=== PATIENT | female | born 1975 | race African-American/Black ===

== ENCOUNTER 2023-11-05 19:11 | Emergency (ER) | payer BC, SELFPAY ==
[2023-11-05 20:16] LABS: Actual Bicarbonate (HCO3v) 24.4 mEq/L (22-28); Base Excess -0.1 mEq/L (-2.0 to +3.0); Calcium, Ionized (venous) 1.05 mmol/L (1.16-1.32); Chloride (VBG) 98 mmol/L (98-106); Hematocrit-VBG 41 % (36.0-47.0); Potassium (VBG) 4.39 mmol/L (3.70-5.30); Sodium 132 mmol/L (133-146)
[2023-11-05 20:20] LABS: #Basophils 0.1 thou/uL (0.0-0.2); #Eosinphils 0.2 thou/uL (0.0-0.7); #Monocytes 0.7 thou/uL (0.11-0.59); #Neutrophils 3.5 thou/uL (1.40-6.50); %Eosinophils 2.9 % (0.0-10.0); %Lymphocytes 36.6 % (21.0-51.0); %Monocytes 10.3 % (0.0-10.0); %Neutrophils 48.9 % (42.0-75.0); Hematocrit 41.5 % (36.0-47.0); Hemoglobin 13.5 g/dL (12.0-16.0); Mean Corpuscular HGB CONC 32.5 g/dL (32.0-36.0); Mean Corpuscular Hemoglobin 23.3 pg (27.0-31.0); Mean Corpuscular Volume 71.6 fl (78.0-98.0); Platelet Count 97 10x3/uL (130-400); RBC Distribution Width 19.3 % (11.5-14.5); White Blood Cell (WBC) Count 7.2 10x3/uL (4.8-10.8)
[2023-11-05 20:38] LABS: Phosphorus 3.3 mg/dL (2.3-4.7)
[2023-11-05 20:46] LABS: ALT (SGPT) 46 U/L (8-55); AST (SGOT) 48 U/L (5-34); Albumin 3.5 g/dL (3.5-5.0); Alkaline Phosphatase 107 U/L (40-110); Anion Gap 14 mmol/L (10-20); Anisocytosis SLIGHT = 6-15 cells HPF (0-5); BUN (Urea Nitrogen) 10 mg/dL (7.0-18.7); Bilirubin, Total 2.1 mg/dL (0.2-1.2); Calc. Creatinine Clearance 0 mL/min (70-130); Calcium 9.2 mg/dL (7.8-10.44); Carbon Dioxide 22 mmol/L (22-29); CellaVision Operator ID lab.abc; Chloride 99 mmol/L (98-107); Estimated GFR 61; Globulin 4.7 g/dL (2.4-3.5); Large Platelets 14.7 % (0-5); Lipase 40 U/L (8-78); Magnesium 1.3 mg/dL (1.6-2.6); Microcytosis SLIGHT = 6-15 cells HPF (0-5); Platelet Adequacy Comment Platelets Decreased; Polychromasia SLIGHT = 2-3 cells HPF (0-2); Potassium 4.3 mmol/L (3.5-5.1); Protein, Total 8.2 g/dL (6.0-8.3); Smudge Cells 17.6 %; Sodium 131 mmol/L (136-145); Target Cells SLIGHT = 2-5 cells HPF (0-1)
[2023-11-05 20:48] LABS: Troponin I 0.013 ng/mL (< 0.028)
[2023-11-05 20:52] LABS: Glucose 456 mg/dL (70-105)
[2023-11-05 21:29] LABS: Bacteria/HPF 4+ HPF (None Seen); Bilirubin Negative (Negative); Blood, Urine 3+ (Negative); CAUTI Indications for Culture Dysuria,urgency,freq; Clarity Turbid (Clear); Glucose, Urine (Dipstick) Greater than 1000 mg/dL (Negative); Ketone, Urine Negative (Negative); Leukocyte 75 Leu/uL (Negative); Nitrite Negative (Negative); Protein, Urine (Dipstick) 10 mg/dL (Neg-Trace); Specific Gravity, Urine 1.016 (1.002-1.036); Urobilinogen 6 mg/dL (Less than 2); pH, Urine 5.5 (5.0-9.0)
[2023-11-05 21:30] LABS: Urine Culture Reflex No No
[2023-11-05] MEDS ORDERED: Losartan 25 MG TAB ONE (22:30)
== END 2023-11-05 22:40 | disposition left against medical advice (07) ==
LOC: ERS 19:11
DX: E11.65 Type 2 diabetes mellitus with hyperglycemia (principal); D69.6 Thrombocytopenia, unspecified; I11.0 Hypertensive heart disease with heart failure; I50.9 Heart failure, unspecified
CPT/HCPCS: 36415; 80053; 81001; 82010; 82805; 83690; 83735; 84100; 84484; 85025; 93005; 96360

== ENCOUNTER 2024-08-28 19:31 | Inpatient (IN) | payer BC, SELFPAY ==
[2024-08-28 20:11] LABS: Actual Bicarbonate (HCO3v) 24.3 mEq/L (22-28); Analyzer IN Cardio ER; Base Excess -0.8 mEq/L (-2.0 to +3.0); Calcium, Ionized (venous) 1.13 mmol/L (1.16-1.32); Chloride (VBG) 98 mmol/L (98-106); Hematocrit-VBG 41 % (36.0-47.0); Hemoglobin (Hb) 13.8 g/dL (11.7-16.0); Potassium (VBG) 3.71 mmol/L (3.70-5.30); Sodium 140 mmol/L (133-146); pH (venous) 7.381 (7.32-7.43)
[2024-08-28 20:32] LABS: #Basophils 0.09 10x3/uL (0.0-0.2); %Eosinophils 3.2 % (0.0-10.0); %Lymphocytes 28.5 % (21.0-51.0); %Monocytes 9.7 % (0.0-10.0); %Neutrophils 56.8 % (42.0-75.0); Hematocrit 40.9 % (36.0-47.0); Hemoglobin 13.1 g/dL (12.0-16.0); Mean Corpuscular Hemoglobin 21.4 pg (27.0-31.0); Mean Corpuscular Volume 66.9 fL (78.0-98.0); Platelet Count 159 10x3/uL (130-400); Red Blood Cell (RBC) Count 6.11 mill/uL (4.20-5.40)
[2024-08-28 20:47] LABS: ALT (SGPT) 55 U/L (8-55); AST (SGOT) 68 U/L (5-34); Albumin 4.1 g/dL (3.5-5.0); Alkaline Phosphatase 103 U/L (40-110); Anion Gap 16 mmol/L (10-20); BUN (Urea Nitrogen) 16 mg/dL (7.0-18.7); Calc. Creatinine Clearance 0 mL/min (70-130); Calcium 9.8 mg/dL (7.8-10.44); Carbon Dioxide 20 mmol/L (22-29); Chloride 103 mmol/L (98-107); Estimated GFR 36; Globulin 4.6 g/dL (2.4-3.5); Glucose 62 mg/dL (70-105); Magnesium 2.2 mg/dL (1.6-2.6); Potassium 3.5 mmol/L (3.5-5.1); Protein, Total 8.7 g/dL (6.0-8.3); Sodium 135 mmol/L (136-145)
[2024-08-28 20:51] LABS: Troponin I Less than 0.010 ng/mL (< 0.028)
[2024-08-28] MEDS ORDERED: Magnesium 2 GM/50 ML BAG (IN WATER) ONE (21:08)
[2024-08-28 22:00] LABS: Free T4 (Free Thyroxine) 1.26 ng/dL (0.70-1.48)
[2024-08-28 23:48] LABS: Bacteria/HPF 4+ HPF (None Seen); Bilirubin Negative (Negative); Blood, Urine 2+ (Negative); CAUTI Indications for Culture Dysuria,urgency,freq; Clarity Turbid (Clear); Glucose, Urine (Dipstick) Normal (Negative); Ketone, Urine Negative (Negative); Leukocyte 75 Leu/uL (Negative); Nitrite Negative (Negative); Protein, Urine (Dipstick) 30 mg/dL (Neg-Trace); RBC/HPF 0-3 HPF (0-3); Specific Gravity, Urine 1.012 (1.002-1.036); Urobilinogen 3 mg/dL (Less than 2); pH, Urine 5.5 (5.0-9.0)
[2024-08-28 23:49] LABS: Urine Culture Reflex Yes Yes
[2024-08-29] MEDS ORDERED: Ondansetron PF 4 MG/2 ML Vial IVP PRN (00:20)
[2024-08-29] MEDS ORDERED: Ondansetron ODT 4 MG TAB PO PRN (00:20)
[2024-08-29] MEDS ORDERED: Sodium Chloride 0.9% 1,000 ML IV SCH (00:45)
[2024-08-29] MEDS ORDERED: Dextrose 50% Abboject 50 ML SYRINGE SLOW IVP PRN (01:20)
[2024-08-29] MEDS ORDERED: Glucagon 1 MG/ML KIT IM PRN (01:20)
[2024-08-29] MEDS ORDERED: Dextrose 5% in Water 1,000 ML IV PRN (01:20)
[2024-08-29 01:21] LABS: Troponin I Less than 0.010 ng/mL (< 0.028)
[2024-08-29] MEDS ORDERED: Sodium Chloride 0.9% 100 ML ONE (01:27)
[2024-08-29] MEDS ORDERED: cefTRIAXone (ROCEPHIN) 2 GM VIAL ONE (01:27)
[2024-08-29 03:17] VITALS: BMI 39.4
[2024-08-29] MEDS: metroNIDAZOLE 500 MG in Premix 1 BAG IVPB SCH (03:34)
[2024-08-29] MEDS: cefTRIAXone\\ROCEPHIN 2 GM in Sodium Chloride 0.9% 100 ML IVPB SCH (03:35)
[2024-08-29 04:55] LABS: #Basophils 0.07 10x3/uL (0.0-0.2); %Basophils 0.7 % (0.0-1.0); %Eosinophils 2.5 % (0.0-10.0); %Lymphocytes 29.2 % (21.0-51.0); %Monocytes 9.4 % (0.0-10.0); %Neutrophils 57.9 % (42.0-75.0); Hematocrit 41.1 % (36.0-47.0); Hemoglobin 12.9 g/dL (12.0-16.0); Mean Corpuscular HGB CONC 31.4 g/dL (32.0-36.0); Mean Corpuscular Hemoglobin 21.7 pg (27.0-31.0); Mean Corpuscular Volume 69.1 fL (78.0-98.0); Platelet Count 139 10x3/uL (130-400); RBC Distribution Width 19.1 % (11.5-14.5); Red Blood Cell (RBC) Count 5.95 mill/uL (4.20-5.40)
[2024-08-29 05:35] LABS: Anisocytosis SLIGHT = 6-15 cells HPF (0-5); Microcytosis SLIGHT = 6-15 cells HPF (0-5); Platelet Adequacy Comment Platelets Normal; Target Cells SLIGHT = 2-5 cells HPF (0-1)
[2024-08-29 06:09] LABS: Troponin I Less than 0.010 ng/mL (< 0.028)
[2024-08-29 06:28] LABS: ALT (SGPT) 52 U/L (8-55); AST (SGOT) 68 U/L (5-34); Albumin 3.6 g/dL (3.5-5.0); Alkaline Phosphatase 92 U/L (40-110); Anion Gap 16 mmol/L (10-20); BUN (Urea Nitrogen) 17 mg/dL (7.0-18.7); Bilirubin, Total 1.1 mg/dL (0.2-1.2); Calc. Creatinine Clearance 79 mL/min (70-130); Calcium 8.8 mg/dL (7.8-10.44); Carbon Dioxide 20 mmol/L (22-29); Chloride 103 mmol/L (98-107); Estimated GFR 52; Globulin 4.3 g/dL (2.4-3.5); Glucose 171 mg/dL (70-105); Potassium 4.2 mmol/L (3.5-5.1); Protein, Total 7.9 g/dL (6.0-8.3); Sodium 135 mmol/L (136-145)
[2024-08-29] MEDS: tiZANidine HCl 4 MG TAB PO SCH (09:00)
[2024-08-29] MEDS: Famotidine 20 MG TAB PO SCH (09:00)
[2024-08-29] MEDS: clonazePAM 0.5 MG TAB PO SCH (09:00)
[2024-08-29] MEDS: FLUoxetine HCl 10 MG CAP PO SCH (09:00)
[2024-08-29] MEDS: traMADol HCl 50 MG TAB PO PRN (09:01)
[2024-08-29] MEDS: Pantoprazole DR 40 MG TAB PO SCH (09:02)
[2024-08-29] MEDS: Enoxaparin 40 MG (0.4 mL) SYRINGE SC SCH (09:03)
[2024-08-29] MEDS: Famotidine/PF 20 mg/2ml Vial SLOW IVP SCH (09:03)
[2024-08-29 12:46] LABS: Hemoglobin A1c 9.8 % (4.0-6.0)
[2024-08-29] MEDS: Insulin Glargine 30 UNITS/0.3 ML VIAL SC SCH (13:04)
[2024-08-29] MEDS: Insulin Lispro 100 UNIT/ML 10 ML VIAL SC SCH (13:05)
[2024-08-29] MEDS: Insulin Lispro 100 UNIT/ML 10 ML VIAL SC PRN ×2 (13:06→20:22)
[2024-08-29] MEDS: traZODone HCl 50 MG TAB PO SCH (20:22)
[2024-08-30 04:44] LABS: #Basophils 0.04 10x3/uL (0.0-0.2); %Basophils 0.6 % (0.0-1.0); %Eosinophils 3.1 % (0.0-10.0); %Monocytes 10.8 % (0.0-10.0); %Neutrophils 54.2 % (42.0-75.0); Hematocrit 38.1 % (36.0-47.0); Mean Corpuscular HGB CONC 31.5 g/dL (32.0-36.0); Mean Corpuscular Hemoglobin 21.5 pg (27.0-31.0); Mean Corpuscular Volume 68.4 fL (78.0-98.0); Platelet Count 130 10x3/uL (130-400); RBC Distribution Width 18.5 % (11.5-14.5); Red Blood Cell (RBC) Count 5.57 mill/uL (4.20-5.40)
[2024-08-30 05:02] LABS: Anion Gap 12 mmol/L (10-20); BUN (Urea Nitrogen) 15 mg/dL (7.0-18.7); Calc. Creatinine Clearance 88 mL/min (70-130); Calcium 9.2 mg/dL (7.8-10.44); Carbon Dioxide 23 mmol/L (22-29); Chloride 106 mmol/L (98-107); Estimated GFR 59; Glucose 295 mg/dL (70-105); Sodium 137 mmol/L (136-145)
[2024-08-30] MEDS: Acetaminophen 325 MG TAB PO PRN (08:43)
[2024-08-30] MEDS: Insulin Glargine 30 UNITS/0.3 ML VIAL SC SCH (08:44)
[2024-08-31 03:39] LABS: #Basophils 0.09 10x3/uL (0.0-0.2); %Basophils 1.4 % (0.0-1.0); %Eosinophils 4.2 % (0.0-10.0); %Lymphocytes 35.3 % (21.0-51.0); %Monocytes 11.4 % (0.0-10.0); %Neutrophils 46.9 % (42.0-75.0); Hematocrit 36.4 % (36.0-47.0); Hemoglobin 11.3 g/dL (12.0-16.0); Mean Corpuscular Hemoglobin 21.2 pg (27.0-31.0); Mean Corpuscular Volume 68.4 fL (78.0-98.0); Platelet Count 147 10x3/uL (130-400); RBC Distribution Width 18.6 % (11.5-14.5); Red Blood Cell (RBC) Count 5.32 mill/uL (4.20-5.40)
[2024-08-31 03:52] LABS: Anion Gap 13 mmol/L (10-20); BUN (Urea Nitrogen) 12 mg/dL (7.0-18.7); Calc. Creatinine Clearance 120 mL/min (70-130); Carbon Dioxide 24 mmol/L (22-29); Chloride 106 mmol/L (98-107); Estimated GFR 86; Glucose 205 mg/dL (70-105); Potassium 3.6 mmol/L (3.5-5.1); Sodium 139 mmol/L (136-145)
[2024-08-31 15:09] VITALS: TEMP 98.1
[2024-08-31 15:11] VITALS: BP 153/79
[2024-09-01] MEDS ORDERED: FLU (Fluarix Triv) TS24-25(6MOS UP)/PF 45 MCG/0.5 ML Syringe IM ONE (09:00)
== END 2024-08-31 15:46 | disposition home or self-care (01) | DRG 872 ==
LOC: ERS 19:31 → 2NO 08-29 00:20
PROVIDERS: ADMIT Internal Medicine; ATTEND Internal Medicine
DX: A41.9 Sepsis, unspecified organism (principal); N39.0 Urinary tract infection, site not specified; N17.9 Acute kidney failure, unspecified; I42.9 Cardiomyopathy, unspecified; F32.A Depression, unspecified; I50.9 Heart failure, unspecified; Z88.8 Allergy status to other drugs, medicaments and biological substances; I11.0 Hypertensive heart disease with heart failure; F41.9 Anxiety disorder, unspecified; Z79.899 Other long term (current) drug therapy; E11.65 Type 2 diabetes mellitus with hyperglycemia; Z79.4 Long term (current) use of insulin
CPT/HCPCS: 36415; 36416; 70450; 71045; 74176; 80048; 80053; 81001; 82805; 83036; 83605; 83735; 83880; 84145; 84439; 84443; 84481; 84484; 85025; 87040; 87077; 87086; 87186; 93005; 96361; 96365; 96367; J0696; J1650; J1815; J3475

== ENCOUNTER 2025-09-03 23:30 | Inpatient (IN) | payer OTHER, SELFPAY ==
[2025-09-04 00:04] LABS: #Basophils 0.06 10x3/uL (0.0-0.2); #Eosinophils 0.17 10x3/uL (0.0-0.7); #Monocytes 0.57 10x3/uL (0.11-0.59); #Neutrophils 4.31 10x3/uL (1.40-6.50); %Basophils 0.7 % (0.0-1.0); %Eosinophils 2.1 % (0.0-10.0); %Lymphocytes 37.8 % (21.0-51.0); %Monocytes 6.9 % (0.0-10.0); %Neutrophils 52.1 % (42.0-75.0); Hematocrit 36.2 % (36.0-47.0); Hemoglobin 11.0 g/dL (12.0-16.0); Mean Corpuscular Hemoglobin 20.7 pg (27.0-31.0); Mean Corpuscular Volume 68.0 fL (78.0-98.0); Platelet Count 138 10x3/uL (130-400); Red Blood Cell (RBC) Count 5.32 mill/uL (4.20-5.40); White Blood Cell (WBC) Count 8.26 10x3/uL (4.8-10.8)
[2025-09-04] MEDS ORDERED: hydrALAZINE 20 MG/ML VIAL ONE (00:08)
[2025-09-04 00:21] LABS: ALT (SGPT) 24 U/L (Less than 34); AST (SGOT) 61 U/L (11-34); Albumin 3.6 g/dL (3.1-4.5); Alkaline Phosphatase 75 U/L (40-110); Anion Gap 15 mmol/L (10-20); BUN (Urea Nitrogen) 9 mg/dL (7.0-18.7); Bilirubin, Total 0.6 mg/dL (0.3-1.2); Calc. Creatinine Clearance 0 mL/min (70-130); Calcium 8.8 mg/dL (7.8-10.44); Carbon Dioxide 24 mmol/L (22-29); Chloride 103 mmol/L (98-107); Globulin 4.3 g/dL (2.4-3.5); Glucose 253 mg/dL (70-105); Lipase 22 U/L (8-78); Potassium 5.2 mmol/L (3.5-5.1); Sodium 137 mmol/L (136-145)
[2025-09-04 00:56] LABS: Anisocytosis SLIGHT = 6-15 cells HPF (0-5); Microcytosis SLIGHT = 6-15 cells HPF (0-5); Platelet Adequacy Comment Platelets Normal; Target Cells SLIGHT = 2-5 cells HPF (0-1)
[2025-09-04] MEDS ORDERED: Glucagon 1 MG/ML KIT IM PRN (04:55)
[2025-09-04] MEDS ORDERED: Dextrose 50% Abboject 50 ML SYRINGE SLOW IVP PRN (04:55)
[2025-09-04] MEDS ORDERED: Albuterol 2.5 MG (3 mL) NEB NEB PRN (05:20)
[2025-09-04 05:47] LABS: #Basophils 0.06 10x3/uL (0.0-0.2); #Eosinophils 0.13 10x3/uL (0.0-0.7); #Monocytes 0.42 10x3/uL (0.11-0.59); #Neutrophils 2.99 10x3/uL (1.40-6.50); %Basophils 1.0 % (0.0-1.0); %Eosinophils 2.1 % (0.0-10.0); %Lymphocytes 41.3 % (21.0-51.0); %Monocytes 6.8 % (0.0-10.0); %Neutrophils 48.5 % (42.0-75.0); Hematocrit 37.1 % (36.0-47.0); Hemoglobin 11.2 g/dL (12.0-16.0); Mean Corpuscular Hemoglobin 20.6 pg (27.0-31.0); Mean Corpuscular Volume 68.3 fL (78.0-98.0); Platelet Count 146 10x3/uL (130-400); Red Blood Cell (RBC) Count 5.43 mill/uL (4.20-5.40); White Blood Cell (WBC) Count 6.17 10x3/uL (4.8-10.8)
[2025-09-04 05:54] LABS: Anion Gap 15 mmol/L (10-20); BUN (Urea Nitrogen) 11 mg/dL (7.0-18.7); Calc. Creatinine Clearance 0 mL/min (70-130); Calcium 9.0 mg/dL (7.8-10.44); Carbon Dioxide 25 mmol/L (22-29); Chloride 103 mmol/L (98-107); Glucose 227 mg/dL (70-105); Magnesium 1.6 mg/dL (1.6-2.6); Potassium 3.5 mmol/L (3.5-5.1); Sodium 139 mmol/L (136-145)
[2025-09-04] MEDS ORDERED: Magnesium 2 GM/50 ML BAG (IN WATER) ONE (07:59)
[2025-09-04] MEDS: Magnesium 2 GM/50 ML(in water) 2 GM in Premix 1 BAG IVPB SCH (08:00)
[2025-09-04 08:32] VITALS: BMI 40.8
[2025-09-04] MEDS: Losartan 25 MG TAB PO SCH (09:49)
[2025-09-04] MEDS: Heparin 5,000 UNITS/ML VIAL SC SCH (09:51)
[2025-09-04] MEDS: clonazePAM 0.5 MG TAB PO PRN (12:09)
[2025-09-04] MEDS: Acetaminophen 325 MG TAB PO PRN (15:48)
[2025-09-04] MEDS: Gabapentin 300 MG CAP PO SCH (20:21)
[2025-09-05] MEDS: hydrALAZINE 20 MG/ML VIAL SLOW IVP PRN (00:26)
[2025-09-05] MEDS: Ketorolac Tromethamine 30 MG (1 mL) VIAL IVP SCH (02:26)
[2025-09-05 04:23] LABS: #Basophils 0.07 10x3/uL (0.0-0.2); #Eosinophils 0.27 10x3/uL (0.0-0.7); #Monocytes 0.80 10x3/uL (0.11-0.59); #Neutrophils 3.69 10x3/uL (1.40-6.50); %Basophils 0.9 % (0.0-1.0); %Eosinophils 3.3 % (0.0-10.0); %Lymphocytes 40.4 % (21.0-51.0); %Monocytes 9.9 % (0.0-10.0); %Neutrophils 45.4 % (42.0-75.0); Hematocrit 42.6 % (36.0-47.0); Hemoglobin 13.4 g/dL (12.0-16.0); Mean Corpuscular Hemoglobin 20.7 pg (27.0-31.0); Mean Corpuscular Volume 65.9 fL (78.0-98.0); Platelet Count 130 10x3/uL (130-400); Red Blood Cell (RBC) Count 6.46 mill/uL (4.20-5.40); White Blood Cell (WBC) Count 8.12 10x3/uL (4.8-10.8)
[2025-09-05 04:46] LABS: Anion Gap 19 mmol/L (10-20); BUN (Urea Nitrogen) 11 mg/dL (7.0-18.7); Calc. Creatinine Clearance 129 mL/min (70-130); Calcium 9.5 mg/dL (7.8-10.44); Carbon Dioxide 18 mmol/L (22-29); Chloride 108 mmol/L (98-107); Glucose 261 mg/dL (70-105); Magnesium 1.9 mg/dL (1.6-2.6); Potassium 3.7 mmol/L (3.5-5.1); Sodium 141 mmol/L (136-145)
[2025-09-05] MEDS ORDERED: Non-Formulary Item 1 EACH (Losartan [Cozaar] 50 MG Tab) PO SCH (09:00)
[2025-09-05] MEDS: Insulin Glargine 30 UNITS/0.3 ML VIAL SC SCH (09:12)
[2025-09-05] MEDS: Pantoprazole 40 MG DR.TAB PO SCH (09:13)
[2025-09-06 04:36] LABS: #Basophils 0.08 10x3/uL (0.0-0.2); #Eosinophils 0.19 10x3/uL (0.0-0.7); #Monocytes 0.97 10x3/uL (0.11-0.59); #Neutrophils 4.56 10x3/uL (1.40-6.50); %Basophils 0.9 % (0.0-1.0); %Eosinophils 2.1 % (0.0-10.0); %Lymphocytes 34.1 % (21.0-51.0); %Monocytes 11.0 % (0.0-10.0); %Neutrophils 51.6 % (42.0-75.0); Hematocrit 46.2 % (36.0-47.0); Hemoglobin 14.5 g/dL (12.0-16.0); Mean Corpuscular Hemoglobin 20.8 pg (27.0-31.0); Mean Corpuscular Volume 66.3 fL (78.0-98.0); Platelet Count 204 10x3/uL (130-400); Red Blood Cell (RBC) Count 6.97 mill/uL (4.20-5.40); White Blood Cell (WBC) Count 8.85 10x3/uL (4.8-10.8)
[2025-09-06 05:08] LABS: Anisocytosis SLIGHT = 6-15 cells HPF (0-5); Microcytosis SLIGHT = 6-15 cells HPF (0-5); Platelet Adequacy Comment Platelets Normal; Polychromasia SLIGHT = 2-3 cells HPF (0-2); Target Cells SLIGHT = 2-5 cells HPF (0-1)
[2025-09-06 05:10] LABS: Anion Gap 19 mmol/L (10-20); BUN (Urea Nitrogen) 13 mg/dL (7.0-18.7); Calc. Creatinine Clearance 96 mL/min (70-130); Calcium 11.1 mg/dL (7.8-10.44); Carbon Dioxide 18 mmol/L (22-29); Chloride 108 mmol/L (98-107); Glucose 171 mg/dL (70-105); Iron 147 ug/dL (50-170); Iron Binding Capacity, Total 423 mcg/dL (265-497); Magnesium 2.1 mg/dL (1.6-2.6); Potassium 4.3 mmol/L (3.5-5.1); Sodium 141 mmol/L (136-145)
[2025-09-06 05:11] LABS: Iron 160 ug/dL (50-170); Iron Binding Capacity, Total 413 mcg/dL (265-497)
[2025-09-06] MEDS: Acetaminophen/Codeine 30-300mg Tablet PO PRN (06:54)
[2025-09-06] MEDS ORDERED: Losartan 25 MG TAB PO SCH (14:31)
[2025-09-06] MEDS: Gabapentin 300 MG CAP PO SCH (20:28)
[2025-09-06] MEDS: clonazePAM 0.5 MG TAB PO PRN (20:35)
[2025-09-07] MEDS: Losartan 25 MG TAB PO SCH (12:15)
[2025-09-07] MEDS: Chlorthalidone 25 MG TAB PO SCH (14:48)
[2025-09-07] MEDS: Ondansetron PF 4 MG/2 ML Vial IVP PRN (19:41)
[2025-09-08 04:26] LABS: Anion Gap 16 mmol/L (10-20); Calc. Creatinine Clearance 76 mL/min (70-130); Calcium 10.1 mg/dL (7.8-10.44); Carbon Dioxide 22 mmol/L (22-29); Chloride 105 mmol/L (98-107); Glucose 260 mg/dL (70-105); Potassium 4.0 mmol/L (3.5-5.1); Sodium 139 mmol/L (136-145)
[2025-09-08 04:37] LABS: BUN (Urea Nitrogen) 23 mg/dL (7.0-18.7)
[2025-09-08 11:22] VITALS: BP 114/71; TEMP 98.6
[2025-09-11 05:38] LABS: Metanephrine,Plasma 27.9 pg/mL (0.0-88.0); Normetanephrine,Pl 327.5 pg/mL (0.0-218.9)
== END 2025-09-08 12:04 | disposition home or self-care (01) | DRG 305 ==
LOC: ERS 23:30 → ERHOLD 09-04 04:36 → 2SE 09-04 04:45 → OBSVTOIN 09-05 15:47
PROVIDERS: ADMIT Internal Medicine; ATTEND Hospitalist
DX: I16.0 Hypertensive urgency (principal); I42.8 Other cardiomyopathies; Z68.41 Body mass index [BMI] 40.0-44.9, adult; I50.42 Chronic combined systolic (congestive) and diastolic (congestive) heart failure; R00.1 Bradycardia, unspecified; I13.0 Hypertensive heart and chronic kidney disease with heart failure and stage 1 through stage 4 chronic kidney disease, or unspecified chronic kidney disease; Z95.810 Presence of automatic (implantable) cardiac defibrillator; Z88.1 Allergy status to other antibiotic agents; F32.A Depression, unspecified; E11.22 Type 2 diabetes mellitus with diabetic chronic kidney disease; N18.2 Chronic kidney disease, stage 2 (mild); J45.909 Unspecified asthma, uncomplicated; E87.5 Hyperkalemia; E78.5 Hyperlipidemia, unspecified; Z86.73 Personal history of transient ischemic attack (TIA), and cerebral infarction without residual deficits; I20.9 Angina pectoris, unspecified; I34.0 Nonrheumatic mitral (valve) insufficiency; E66.01 Morbid (severe) obesity due to excess calories; F41.9 Anxiety disorder, unspecified; G25.81 Restless legs syndrome
CPT/HCPCS: 36415; 36416; 71045; 80048; 80053; 82533; 82728; 83036; 83540; 83550; 83690; 83735; 83835; 83880; 84443; 84484; 85025; 93005; 93010; 93306; 94760; 96374; 96375; 96376; G0378; J0360; J1644; J1815; J1885; J2405; J3475